=== PATIENT | female | born 1990 | race Caucasian/White ===

== ENCOUNTER 2019-08-13 16:21 | Emergency (ER) | payer OTHER ==
[~2019-08-13] VITALS: Ht 162.6 cm; Wt 108.9 kg
[~2019-08-13 16:21] MED LIST: ALBU90OI INH; AZIT250 PO; BENZ100A PO; CODGUAEL PO; IBUP800 PO; MOMENI; PRED20 PO
[2019-08-13 17:01] LABS: BASOPHILS ABSOLUTE AUTO 0.02 K/mm3 (0.00-0.23); BASOPHILS PERCENT AUTO 0 % (0-2); EOSINOPHILS ABSOLUTE AUTO 0.05 K/mm3 (0.00-0.68); EOSINOPHILS PERCENT AUTO 0 % (0-6); Hematocrit 45.9 % (33.0-51.0); Hemoglobin 14.9 g/dL (11.5-16.0); IMMATURE GRAN ABSOLUTE AUTO 0.05 K/mm3 (0.00-0.10); IMMATURE GRAN PERCENT AUTO 0 % (0-1); LYMPHOCYTES ABSOLUTE AUTO 0.51 K/mm3 (0.84-5.20); LYMPHOCYTES PERCENT AUTO 4 % (21-46); MONOCYTES ABSOLUTE AUTO 0.31 K/mm3 (0.16-1.47); MONOCYTES PERCENT AUTO 3 % (4-13); Mean Corpuscular HGB Conc 32.5 g/dL (31.5-36.5); Mean Corpuscular Volume 83 fL (80-100); Mean Platelet Volume 11.4 fL (9.1-12.4); NEUTROPHILS ABSOLUTE AUTO 10.74 K/mm3 (1.96-9.15); NEUTROPHILS PERCENT AUTO 92 % (41-73); Platelet Count 284 K/mm3 (150-400); RDW Coefficient Variation 13.5 % (11.7-14.2); RDW Standard Deviation 41.3 fL (35.1-46.3); Red Blood Cell Count 5.51 M/mm3 (3.80-5.20); White Blood Cell Count 11.68 K/mm3 (4.00-11.30)
[2019-08-13 17:29] LABS: Alanine Aminotransfer (ALT/SGP 33 U/L (12-78); Albumin, Blood 3.9 g/dL (3.4-5.0); Albumin/Globulin Ratio 0.9 (0.8-1.8); Alk Phos 129 U/L (50-136); Anion Gap 6 mmol/L (6-16); Aspartate Aminotrans (AST/SGOT 16 U/L (12-37); Bilirubin, Total 0.4 mg/dL (0.1-1.0); Blood Urea Nitrogen 13 mg/dL (8-24); CO2, Blood 23 mmol/L (21-32); Calcium, Blood 8.4 mg/dL (8.5-10.1); Chloride, Blood 107 mmol/L (98-108); Creatinine, Blood 0.59 mg/dL (0.40-1.00); Globulin, Blood 4.5 g/dL (2.2-4.0); Glomerular Filtration Rate >60 (60-); Glucose, Blood 107 mg/dL (70-99); Potassium, Blood 3.7 mmol/L (3.5-5.5); Sodium, Blood 136 mmol/L (136-145); Total Protein, Blood 8.4 g/dL (6.4-8.2)
[2019-08-13] MEDS ORDERED: IBUP600 PO (17:44)
[2019-08-13] MEDS ORDERED: Lomotil Tablet1 EACH PO (17:44)
[2019-08-13] MEDS ORDERED: Zofran4 MG PO (17:44)
== END 2019-08-13 17:56 | disposition home or self-care (01) ==
LOC: ER 16:21
PROVIDERS: Emergency Medicine
DX: R11.2 Nausea with vomiting, unspecified (principal); R19.7 Diarrhea, unspecified
CPT/HCPCS: 36415; 80053; 81025; 85025; 96374; 99283-25; J2405

== ENCOUNTER 2020-03-19 20:58 | Emergency (ER) | payer OTHER ==
[~2020-03-19] VITALS: Ht 160 cm; Wt 81.7 kg
[~2020-03-19 20:58] MED LIST changes: +IBUP600 PO; +Lomotil Tablet1 EACH PO; +Zofran4 MG PO
== END 2020-03-19 22:50 | disposition home or self-care (01) ==
LOC: ER 20:58
DX: S02.122A Fracture of orbital roof, left side, initial encounter for closed fracture (principal); S02.40DA Maxillary fracture, left side, initial encounter for closed fracture; F17.200 Nicotine dependence, unspecified, uncomplicated; Z91.038 Other insect allergy status; V09.9XXA Pedestrian injured in unspecified transport accident, initial encounter
CPT/HCPCS: 70450; 70486; 99284-25

== ENCOUNTER 2023-04-13 18:02 | Emergency (ER) | payer OTHER ==
[~2023-04-13] VITALS: Ht 160 cm; Wt 90.7 kg
[~2023-04-13 18:02] MED LIST changes: +NALOXONE HC1 MG/1 ML IM
[2023-04-13 18:14] VITALS: BP 171/99
[2023-04-13] MEDS ORDERED: ERYT.5TO BOTHEYES (19:09)
[2023-04-13] MEDS ORDERED: CLIN150 PO (19:09)
== END 2023-04-13 19:32 | disposition home or self-care (01) ==
LOC: ER 18:02
DX: H10.31 Unspecified acute conjunctivitis, right eye (principal); L03.119 Cellulitis of unspecified part of limb; Z91.030 Bee allergy status
CPT/HCPCS: 99282

== ENCOUNTER 2024-11-15 03:26 | Emergency (ER) | payer OTHER ==
[~2024-11-15] VITALS: Ht 162.6 cm; Wt 74.8 kg
[~2024-11-15 03:26] MED LIST changes: +CLIN150 PO; +ERYT.5TO BOTHEYES
[2024-11-15 03:37] VITALS: BP 159/86
[2024-11-15] MEDS ORDERED: IBU600 MG PO (03:44)
[2024-11-15] MEDS ORDERED: Veetids 500500 MG PO (03:44)
[2024-11-15] MEDS ORDERED: Ibuprofen 600 MG Tab PO ONE (03:45)
[2024-11-15] MEDS ORDERED: Penicillin V Potassium 250 MG Tab PO ONE (03:45)
== END 2024-11-15 04:04 | disposition home or self-care (01) ==
LOC: ER 03:26
DX: K08.89 Other specified disorders of teeth and supporting structures (principal)
CPT/HCPCS: 99282; A9270